=== PATIENT | male | born 1965 | race Caucasian/White ===

== ENCOUNTER 2024-04-14 13:10 | Emergency (ER) | payer OTHER ==
[2024-04-14] MEDS ORDERED: Ibuprofen 200 MG TAB ONE (13:24)
== END 2024-04-14 14:06 | disposition still patient (30) ==
LOC: NAV ERS 13:10
DX: S80.01XA Contusion of right knee, initial encounter (principal); S60.211A Contusion of right wrist, initial encounter; W18.30XA Fall on same level, unspecified, initial encounter; Y92.149 Unspecified place in prison as the place of occurrence of the external cause